=== PATIENT | female | born 1935 | race Caucasian/White ===

== ENCOUNTER 2016-06-09 19:16 | Emergency (ER) | payer OTHER ==
[~2016-06-09] VITALS: Ht 157.5 cm; Wt 62.1 kg
[~2016-06-09 19:16] MED LIST: ADULT LOW DOSE81 MG PO; ALPRAZOLAM 0.0.25 M1 PO; AMBIEN 10 MG TA10 MG PO; AMOXICILLIN875 MG PO; CALCIUM 500 +1 EAC5 PO; CARVEDILOL12.5 MG PO; CENTRUM SILVER1 EAC1 PO; CIPROFLOXACIN500 M3 PO; FLAGYL500 MG PO; FOSAMAX 70 MG T70 M1 PO; K-DUR 20 MEQ T20 MEQ PO; PREVACID 24HR15 MG PO; PREVACID 30MG C30 M1 PO; PREVACID30 M1 PO; SIMVASTATIN80 MG PO; VITAMIN E 400I400 I1 PO
[2016-06-09] MEDS ORDERED: NORCO 5-325 TA1 EACH PO (21:01)
[2016-06-09 21:33] VITALS: BP 197/99
== END 2016-06-09 21:33 | disposition home or self-care (01) ==
LOC: ER 19:16
DX: S42.201A Unspecified fracture of upper end of right humerus, initial encounter for closed fracture (principal); I10 Essential (primary) hypertension; E78.00 Pure hypercholesterolemia, unspecified; K21.9 Gastro-esophageal reflux disease without esophagitis; M81.0 Age-related osteoporosis without current pathological fracture; W01.0XXA Fall on same level from slipping, tripping and stumbling without subsequent striking against object, initial encounter; Y93.89 Activity, other specified; Y92.89 Other specified places as the place of occurrence of the external cause; Y99.9 Unspecified external cause status

== ENCOUNTER → 2016-11-09 | Outpatient (CLI) | payer OTHER ==
[~2016-11-09] MED LIST changes: +NORCO 5-325 TA1 EACH PO
== END ==
LOC: RAD 01:58
DX: Z12.31 Encounter for screening mammogram for malignant neoplasm of breast (principal)

== ENCOUNTER → 2017-07-14 | Outpatient (CLI) | payer OTHER ==
[~2017-07-14] VITALS: Ht 157.5 cm; Wt 58.1 kg
[~2017-07-14] MED LIST changes: +ASPIR 8181 MG PO; +BYSTOLIC 5 MG5 M1 PO; +CENTRUM SILVER1 EAC4 PO; +COZAAR 50 MG TA50 M2 PO; +HYDROCHLOROTH12.5 M1 PO; +PROBIOTIC1 EAC1 PO; +SIMVASTATIN40 MG PO; +VITAMIN D2000 UNIT PO
--- NOTE | ~2017-07-14 | S ---
[facility] [place] [address] SURGICAL PATH RPT PROCEDURE Name: YESSY BURGER Room #: REG [facility].#: [id number] Admission: 07/14/17 Date of : 31 Discharge: Report #: [id number] Path Case #: [id number] PATHOLOGY REPORT COLLECTION DATE: 07/14/2017 RECEIVED DATE: 07/14/2017 SUBMITTING PHYS: Dr. Cristopher Alaniz OTHER PHYS: Dr. Andrew Iqbal SPECIMEN(S) RECEIVED: A.Biopsy of cecal polyp B.Biopsy of polyp at hepatic flexure C.Biopsy of polyp at 50cm x2 * * * * * * * * * * * * FINAL DIAGNOSIS: A. Polyp, cecal polyp, endoscopic biopsy: - Tubular adenoma. - Negative for high-grade dysplasia. B. Polyp, hepatic flexure, endoscopic biopsy: - Tubular adenoma. - Negative for high-grade dysplasia. C. Polyp, at 50 cm, endoscopic biopsy: - Tubular adenoma in one fragment without high-grade dysplasia. - Other fragments showing no diagnostic abnormalities. (IUV:mgr; 07/17/2017) PATHOLOGIST: Ilda Fong M.D. REPORT ELECTRONICALLY SIGNED BY: Ilda Fong M.D. DATE/TIME: 07/17/2017 14:49 * * * * * * * * * * * * GROSS PATHOLOGY: A. Received in formalin labeled "Yessy Burger, BX of cecal polyp" and consists of a 0.3 cm cervantes mucosal biopsy which is entirely submitted A1. B. Received in formalin labeled "Yessy Burger, biopsy of polyp, hepatic flexure" and consists of a 0.3 cm cervantes mucosal biopsy which is entirely submitted as B1. C. Juan A formalin labeled "Yessy Burger, biopsy of polyp at 50 cm" and consists of 2 cervantes mucosal biopsies each averaging 0.3 cm. The specimen is entirely submitted as C1. (RU; 07/14/2017) CLINICAL HISTORY: [address] [address] SURGICAL PATH RPT PROCEDURE Name: YESSY BURGER Room #: REG [facility].#: [id number] Admission: 07/14/17 Date of : 31 Discharge: Report #: [id number] Path Case #: [id number] Colon polyps, diverticulosis. INITIAL CPT CODE(S): A; 62202 B; 26132 C; 52143 Professional services performed by [facility] at [address], [place] [address] Technical services performed by [facility] at [address] [place] [address], [facility] [place] [address] [address]. [facility] [address] [place] [address] PHONE: [phone] DIRECTOR: Tony Mckeon M.D. * * * END OF REPORT * * *
--- NOTE | ~2017-07-14 | P ---
[facility] [place] [address] PROCEDURE REPORT Name: ANDRES SHORE Room #: REG [facility]#: [id number] Admission: 07/14/17 Attend Phys: Cristopher Alaniz MD Discharge: Date of : 33 Report #: [id number] THIS REPORT FOR: //name// CC: Andrew Alaniz BRIEF HISTORY: The patient is an 81-year-old woman with a history of multiple colon polyps for high risk screening colonoscopy. PREOPERATIVE DIAGNOSIS: High risk screening colonoscopy due to multiple colon adenomas. POSTOPERATIVE DIAGNOSES: 1. Multiple colon polyps. 2. Ybdhlojr-cz-kurjpr diverticulosis coli, sigmoid colon. MEDICATIONS: Deep sedation with propofol per anesthesia. SPECIMENS: 1. Cecal polyp. 2. Polyps times 2, hepatic flexure. 3. Polyps times 2 at 50 cm. ESTIMATED BLOOD LOSS: 3 mL. PROCEDURE: Colonoscopy to cecum and terminal ileum with biopsy. FINDINGS: Prior to propofol sedation, the procedure of colonoscopy discussed with the patient as well as potential risks, benefits, and complications. She indicates she understands and desires to proceed. With the patient in left lateral decubitus position, digital examination was completed, which revealed no abnormalities. Subsequently, the [employer] video colonoscope was introduced in the rectum, advanced under direct vision to the cecum. Done with minimal difficulty. The cecum was identified by the ileocecal valve and the appendiceal orifice. I was able to visualize the distal segment of terminal ileum, which was inspected and noted to be unremarkable. At that point, scope was slowly withdrawn and careful circumferential views obtained including retroflexing the scope in the ascending colon. Upon slow withdrawal of the scope, the prep was noted to be good. The mucosa was within normal limits, normal vascular pattern, and normal light reflex. As we withdrew the scope, she was found to have a number of diminutive polyps. There was 1 diminutive polyp in the cecum, removed by biopsy, also another in the hepatic flexure, removed by biopsy and 2 in the descending colon removed by biopsy at 50 cm. All were removed with biopsy forceps. Additional findings included a few scattered diverticula in proximal colon. There was [id number]-sg-[id number] [facility] [address] [place] [address] PROCEDURE REPORT Name: ANDRES SHORE Room #: REG [facility].#: [id number] Admission: 07/14/17 Attend Phys: Cristopher Alaniz MD Discharge: Date of : 31 Report #: [id number] diverticular disease of the sigmoid colon without endoscopic evidence of diverticulitis. Scope was withdrawn in the rectum. Upon retroflexion, no abnormalities were seen. Scope was withdrawn. The patient tolerated the procedure well. CONDITION OF THE PATIENT UPON DISCHARGE: Following procedure, the patient drowsy, arousable, and conversant and will be discharged to home when fully ambulatory. INSTRUCTIONS TO THE PATIENT AND FAMILY AT THE TIME OF DISCHARGE: Four small polyps identified today. We will follow up on path and make further recommendations with the patient. However, at this point in life, there may be minimal benefit from continued routine surveillance or screening colonoscopy. However, if she did develop any problems, colonoscopy could be accomplished at that time. Previous colonoscopy was 3 years ago, withdrawal time from the cecum was 16 minutes and 31 seconds. The patient does report some gas symptoms. She has a history of IBS. She has had more diarrhea in the past and now is having more constipation. She is using Metamucil. Metamucil may be a factor with regards to gas production. One option would be to use MiraLax instead of Metamucil. Also, use of a probiotic may be helpful. If these symptoms persist, she should return to see me in followup in the office. <ELECTRONICALLY SIGNED> By: Cristopher Alaniz MD 07/14/17 1533 1044 1331 Cristopher Alaniz MD /nt
== END | disposition home or self-care (01) ==
LOC: GI 07:56
DX: Z09 Encounter for follow-up examination after completed treatment for conditions other than malignant neoplasm (principal); Z86.010 Personal history of colon polyps; K57.30 Diverticulosis of large intestine without perforation or abscess without bleeding; D12.0 Benign neoplasm of cecum; D12.3 Benign neoplasm of transverse colon; D12.5 Benign neoplasm of sigmoid colon; I10 Essential (primary) hypertension; E78.00 Pure hypercholesterolemia, unspecified; K21.9 Gastro-esophageal reflux disease without esophagitis; M81.0 Age-related osteoporosis without current pathological fracture; F41.8 Other specified anxiety disorders; Z79.82 Long term (current) use of aspirin; Z87.891 Personal history of nicotine dependence; Z79.899 Other long term (current) drug therapy; Z98.890 Other specified postprocedural states
CPT/HCPCS: 62110; 62900

== ENCOUNTER 2017-09-09 11:42 | Inpatient (IN) | payer OTHER ==
[~2017-09-09] VITALS: Ht 157.5 cm; Wt 56.7 kg
--- NOTE | ~2017-09-09 | O ---
[facility] [place] [address] OPERATIVE REPORT Name: ANDRES SHORE Room #: 429-P ADM IN M.R.#: [id number] Admission: 09/09/17 Attend Phys: Esteban Downing MD Discharge: Date of : 31 Report #: [id number] THIS REPORT FOR: //name// CC: Andrew Downing DATE OF SERVICE: 09/10/2017 SERVICE: Orthopedics. FACILITY: [facility]. SURGEON: Billy Al MD PLANT CLERK: None. PREOPERATIVE DIAGNOSIS: Displaced right intertrochanteric hip fracture. POSTOPERATIVE DIAGNOSIS: Displaced right intertrochanteric hip fracture. PROCEDURE: IM nailing, right intertrochanteric hip fracture. COMPLICATIONS: None. DRAINS: None. SPECIMENS: None. ANESTHESIA: General. ESTIMATED BLOOD LOSS: 200 mL. FINDINGS: 1. Comminuted intertrochanteric hip fracture. 2. [employer] InterTan short nail 125 degree with 95 x 90 dual compression screw system and 27.5 mm distal interlocking screw. HISTORY AND INDICATIONS: The patient is an 82-year-old female who fell at home, sustained a right hip fracture. She was brought to the Emergency Room where she was admitted for definitive treatment. The risks, benefits, alternatives and indication for surgery were discussed with her and her son-in-law in detail and she gave full informed consent and wished to proceed. Risks include but not limited to pain, bleeding, infection, injury to nerves or blood vessels, persistent pain despite surgical intervention, malunion, nonunion, need for further surgery including revision as well as complications related to anesthesia such as stroke, heart attack, pulmonary complications, thromboembolic [facility] [address] [place] [address] OPERATIVE REPORT Name: ANDRES SHORE Room #: 429-P [facility] IN M.R.#: [id number] Admission: 09/09/17 Attend Phys: Esteban Downing MD Discharge: Date of : 31 Report #: [id number] disease and . Despite these risks, she wished to proceed. PROCEDURE IN DETAIL: After right leg was correctly identified as the operative extremity, she was taken to the operating room where general anesthesia was induced without complication. She was padded appropriately. Prophylactic antibiotics were administered at appropriate time after she was transferred to the operating table. Time-out procedure was performed. X-ray was brought in to assess the reduction. The reduction maneuver was performed with external rotation, traction and then adduction and internal rotation. This provided a good reduction that was symmetric with the contralateral hip x-ray. Then, the right leg was prepped and draped in standard sterile fashion. Using fluoroscopy to localize the bone, an incision was made proximal to the greater trochanter and dissection was taken down to the trochanter and then a guidepin was placed and advanced across the fracture in standard fashion using multiple planes of x-ray. The anterior reamer was then utilized and then the guidepin was passed across the fracture into the femur. Then, the proximal femur was sequentially reamed to 12.5 mm diameter to allow placement of a 11.5 mm nail and then the outrigger was utilized to place an appropriately positioned proximal interlocking screw in cephalomedullary configuration. The screw length was measured to be 100 mm and so a 95 mm screw was selected to allow for up to 5 mm of compression. This was advanced and then the compression screw was placed and compression completed. The screw was confirmed to be within the bone on both AP and lateral and x-rays were saved. The screw was then locked in position within the nail and then the outrigger was used to place the 27.5 mm distal interlocking screw through the nail. Final x-rays were taken. The outrigger instrumentation was removed from the nail and then the wound was copiously irrigated. The fascial layer was closed with 0 Vicryl. The skin was closed with 2-0 Vicryl followed by skin jose f. Sterile dressing was applied. The patient was awakened from anesthesia and taken to recovery room in stable condition. There were no complications and all counts were recorded as correct. <ELECTRONICALLY SIGNED> By: Billy Al MD 09/10/17 1421 1020 1207 Billy Al MD /nt
--- NOTE | ~2017-09-09 | EKG ---
[place] [address] [facility] [place] [address] ELECTROCARDIOGRAM REPORT Name: ANDRES SHORE Room #: 429-P ADM IN M.R.#: [id number] Admission: 09/09/17 Attend Phys: Esteban Downing MD Discharge: Date of : 31 Report #: [id number] THIS REPORT FOR: //name// [facility] ED Test Date: 2017-09-09 Test Time: 12:59:26 Pat Name: ANDRES SHORE Department: Room: 429 Gender: F Vest Front Presser: ophelia : 1935 Requested By: Jeremie Zepeda Order Number: [id number] MD: Ovidio Leblanc Measurements Intervals Howard Rate: 62 P: -4 NV: 202 QRS: -18 QRSD: 80 T: 20 QT: 428 QTc: 435 Interpretive Statements Sinus rhythm Atrial premature complexes Inferior infarct, old Poor R wave progression Compared to ECG 05/31/2011 22:29:03 Atrial premature complex(es) now present Electronically Signed On 09-10-2017 12:06:38 CDT by Ovidio Leblanc [email or web address] <ELECTRONICALLY SIGNED> By: Ovidio Leblanc MD, [facility] 09/10/17 1206 1259 1259 Ovidio Leblanc MD, [facility] /EPI
[2017-09-09 11:43] VITALS: BP 145/74
[2017-09-09 12:47] LABS: HEMOGLOBIN 14.6 gm/dL (12.0-15.0); MCH 31.9 pg (26.0-34.0); MCHC 33.9 g/dL (28.0-37.0); MCV 94.1 fL (80.0-100.0); RBC 4.57 mil/uL (4.20-5.00); RDW 13.5 % (10.5-14.5); WBC 7.8 thou/uL (4.0-11.0)
[2017-09-09 12:55] LABS: CALCIUM 9.5 mg/dL (8.5-10.1); CREATININE 0.9 mg/dL (0.6-1.0); POTASSIUM 3.9 mmol/L (3.5-5.1)
[2017-09-09 13:08] LABS: APTT 23.1 Seconds (24.5-32.8); PROTIME 10.3 Seconds (9.3-11.4)
[2017-09-09 13:39] VITALS: BP 173/78
[2017-09-09 13:55] VITALS: BP 172/69
[2017-09-09 19:25] VITALS: BP 111/56
[2017-09-10] VITALS (7 sets, daily range): BP systolic 94–136; BP diastolic 45–82
[2017-09-10 05:28] LABS: HEMATOCRIT 28.6 % (37.0-47.0); MCH 32.6 pg (26.0-34.0); MCV 93.2 fL (80.0-100.0); RBC 3.07 mil/uL (4.20-5.00); RDW 13.6 % (10.5-14.5); WBC 10.9 thou/uL (4.0-11.0)
[2017-09-10 05:38] LABS: CALCIUM 8.1 mg/dL (8.5-10.1); CREATININE 0.8 mg/dL (0.6-1.0); POTASSIUM 3.8 mmol/L (3.5-5.1)
[2017-09-11] VITALS: BP 102/54
[2017-09-11 04:00] VITALS: BP 111/55
[2017-09-11 06:11] LABS: POTASSIUM 3.9 mmol/L (3.5-5.1)
[2017-09-11 06:12] LABS: HEMATOCRIT 20.1 % (37.0-47.0); HEMOGLOBIN 6.9 gm/dL (12.0-15.0)
[2017-09-11 07:25] VITALS: BP 114/54
[2017-09-11 14:22] VITALS: BP 126/42; BP 95/49
[2017-09-11 19:57] VITALS: BP 104/51
[2017-09-12 07:05] VITALS: BP 109/53
[2017-09-12 07:48] LABS: HEMATOCRIT 20.7 % (37.0-47.0); HEMOGLOBIN 7.2 gm/dL (12.0-15.0); MCH 31.6 pg (26.0-34.0); MCHC 34.7 g/dL (28.0-37.0); MCV 90.9 fL (80.0-100.0); RBC 2.28 mil/uL (4.20-5.00); RDW 15.4 % (10.5-14.5); WBC 10.3 thou/uL (4.0-11.0)
[2017-09-12 08:01] LABS: % SATURATION 9 % (20-39); ALBUMIN 1.9 g/dL (3.4-5.0); CALCIUM 7.8 mg/dL (8.5-10.1); CREATININE 0.7 mg/dL (0.6-1.0); IRON 14 ug/dL (50-170); MAGNESIUM 1.6 mg/dL (1.8-2.4); POTASSIUM 3.5 mmol/L (3.5-5.1); TIBC 153 ug/dL (250-450); TOTAL PROTEIN 4.5 g/dL (6.4-8.2)
[2017-09-12 08:28] LABS: FERRITIN 103 ng/mL (8-252)
[2017-09-12 19:24] VITALS: BP 110/64
[2017-09-13 07:28] LABS: CALCIUM 7.6 mg/dL (8.5-10.1); CREATININE 0.7 mg/dL (0.6-1.0); MAGNESIUM 1.9 mg/dL (1.8-2.4); POTASSIUM 3.2 mmol/L (3.5-5.1)
[2017-09-13 08:00] VITALS: BP 118/60
[2017-09-13 09:55] LABS: HEMATOCRIT 20.9 % (37.0-47.0); HEMOGLOBIN 7.2 gm/dL (12.0-15.0); MCH 31.9 pg (26.0-34.0); MCHC 34.5 g/dL (28.0-37.0); MCV 92.3 fL (80.0-100.0); RBC 2.26 mil/uL (4.20-5.00); RDW 15.6 % (10.5-14.5); WBC 9.6 thou/uL (4.0-11.0)
[2017-09-13 20:38] VITALS: BP 99/58
[2017-09-14 07:00] VITALS: BP 129/52
== END 2017-09-14 14:30 | DRG 480 ==
LOC: ER 11:42 → 4E 13:04 → EROBS 13:04 → 4E 14:02 → SICU 09-11 16:52
PROVIDERS: Emergency Medicine; Hospitalist; Orthopaedic Surgery Sports Medicine; Registered Nurse
PROC: 0QS606Z Reposition Right Upper Femur with Intramedullary Internal Fixation Device, Open Approach (ICD-10-PCS; 2017-09-10)
PROC: 30233N1 Transfusion of Nonautologous Red Blood Cells into Peripheral Vein, Percutaneous Approach (ICD-10-PCS; principal; 2017-09-11)
DX: S72.141A Displaced intertrochanteric fracture of right femur, initial encounter for closed fracture (principal); E43 Unspecified severe protein-calorie malnutrition; D62 Acute posthemorrhagic anemia; I10 Essential (primary) hypertension; E78.00 Pure hypercholesterolemia, unspecified; E78.5 Hyperlipidemia, unspecified; K21.9 Gastro-esophageal reflux disease without esophagitis; K59.00 Constipation, unspecified; F41.9 Anxiety disorder, unspecified; Z79.82 Long term (current) use of aspirin; Z79.899 Other long term (current) drug therapy; Z87.891 Personal history of nicotine dependence; Z90.49 Acquired absence of other specified parts of digestive tract; Z68.22 Body mass index [BMI] 22.0-22.9, adult; W18.39XA Other fall on same level, initial encounter; Y93.89 Activity, other specified; Y92.094 Garage of other non-institutional residence as the place of occurrence of the external cause; Y99.8 Other external cause status; Z87.81 Personal history of (healed) traumatic fracture
CPT/HCPCS: 10084; 15002; 50101; 50386; 50417; 51412; 51538; 55445; 56524; 56526; 57090; 62110; 62900; 70005

== ENCOUNTER → 2018-01-03 | Outpatient (CLI) | payer OTHER | LOC: RAD 14:15 | DX: Z12.31 Encounter for screening mammogram for malignant neoplasm of breast (principal); I10 Essential (primary) hypertension; E78.00 Pure hypercholesterolemia, unspecified; M81.0 Age-related osteoporosis without current pathological fracture; K21.9 Gastro-esophageal reflux disease without esophagitis ==

== ENCOUNTER → 2018-01-09 | Outpatient (CLI) | payer OTHER | LOC: RAD 01:12 | DX: N60.01 Solitary cyst of right breast (principal); I10 Essential (primary) hypertension; E78.00 Pure hypercholesterolemia, unspecified; K21.9 Gastro-esophageal reflux disease without esophagitis; M81.0 Age-related osteoporosis without current pathological fracture ==

== ENCOUNTER → 2018-07-20 | Outpatient (CLI) | payer OTHER | LOC: RAD 13:25 | DX: N60.01 Solitary cyst of right breast (principal); M81.0 Age-related osteoporosis without current pathological fracture; F41.1 Generalized anxiety disorder; E55.9 Vitamin D deficiency, unspecified; E78.5 Hyperlipidemia, unspecified; I25.10 Atherosclerotic heart disease of native coronary artery without angina pectoris; K21.9 Gastro-esophageal reflux disease without esophagitis ==

== ENCOUNTER → 2019-02-21 | Outpatient (CLI) | payer OTHER | LOC: BC 01:21 | DX: Z12.31 Encounter for screening mammogram for malignant neoplasm of breast (principal) ==

== ENCOUNTER → 2019-06-28 | Outpatient (CLI) | payer OTHER | LOC: SJCVC 10:46 | DX: I21.29 ST elevation (STEMI) myocardial infarction involving other sites (principal); R94.31 Abnormal electrocardiogram [ECG] [EKG]; I25.10 Atherosclerotic heart disease of native coronary artery without angina pectoris; E78.00 Pure hypercholesterolemia, unspecified; I10 Essential (primary) hypertension; I65.23 Occlusion and stenosis of bilateral carotid arteries; Z90.49 Acquired absence of other specified parts of digestive tract; Z79.899 Other long term (current) drug therapy; Z87.891 Personal history of nicotine dependence ==

== ENCOUNTER → 2020-02-24 | Outpatient (CLI) | payer OTHER | LOC: SJCVCIMAG 07:32 | PROVIDERS: ATTEND Internal Medicine Cardiovascular Disease | DX: I08.8 Other rheumatic multiple valve diseases (principal); I25.10 Atherosclerotic heart disease of native coronary artery without angina pectoris; I11.9 Hypertensive heart disease without heart failure; E78.00 Pure hypercholesterolemia, unspecified; I65.23 Occlusion and stenosis of bilateral carotid arteries; Z79.899 Other long term (current) drug therapy; Z87.891 Personal history of nicotine dependence ==

== ENCOUNTER → 2020-05-12 | Outpatient (CLI) | payer OTHER | LOC: BC 10:18 | PROVIDERS: ATTEND Internal Medicine | DX: Z12.31 Encounter for screening mammogram for malignant neoplasm of breast (principal) ==

== ENCOUNTER → 2020-05-21 | Outpatient (CLI) | payer OTHER | LOC: ULTRA 10:36 | PROVIDERS: ATTEND Internal Medicine | DX: N60.01 Solitary cyst of right breast (principal); N63.12 Unspecified lump in the right breast, upper inner quadrant ==

== ENCOUNTER → 2020-06-02 | Outpatient (CLI) | payer OTHER ==
--- NOTE | 2020-06-04 12:07 | PATH ---
[facility] [address] [place] [address] PATHOLOGY RPT PROCEDURE Name: YESSY BURGER Room #: REG CL M.R.#: [id number] Admission: 06/02/20 Date of : 31 Discharge: Report #: [id number] Path Case #: [id number] [facility] Accession Number: [id number] . 01 Material submitted: . breast - RIGHT BREAST MASS. Modifiers: right . 01 Clinical history: . RIGHT BREAST MASS RAD/US/MAMMOTOME BREAST BIOPSY RIGHT BREAST . 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 (IUV:sheet manager; 06/04/2020) MBR 06/04/2020 1043 Local . 02 Comment: Examination shows a central sclerotic focus with scattered rare cells lining the sclerosed foci. The surrounding ductal epithelium around the sclerotic focus is highly atypical with columnar cell change showing moderate to severe atypia or invasive carcinoma. The scattered foci measure 1 mm each. Overall, the entire lesion measures 4 mm. Properly controlled immunohistochemical stains are performed on block A1. P63 and SMMHC show no myoepithelial staining within the focus including the epithelial cells in the central foci as well as the atypical ductal epithelium in the periphery. ER shows strong 3+ reactivity within the atypical ductal epithelium, as well as shows moderate 2+ reactivity within the central sclerotic foci. CK5/6 shows a complete loss of mosaic pattern within the focus. The atypical foci measure 1 mm or less than 1 mm, therefore, the scant nature precludes a definitive interpretation for this lesion. The differential diagnosis includes an encapsulated papillary carcinoma, or invasive papillary carcinoma. Recommend complete excision of this lesion. . Dr. Martha Owen has seen videotape sales representative H and E slides of this case and concurs with my diagnosis. . (IUV:sheet manager; 06/04/2020) . 02 Electronically signed: . Ilda Fong MD, Pathologist NPI- [id number] . 01 Gross description: . The specimen is received in formalin, labeled "Yessy Burger, [place] [address] PATHOLOGY RPT PROCEDURE Name: YESYS BURGER Room #: REG CLI M.R.#: [id number] Admission: 06/02/20 Date of : 31 Discharge: Report #: [id number] Path Case #: [id number] 12:00 2 cm". Received are multiple needle cores of fibrofatty tissue measuring 2.3 x 1.4 x 0.5 cm in aggregate dimensions. The specimen is submitted entirely in cassettes A1 through A3. The cold ischemic time is less than 1 minute. The total formalin fixation time is 9 hours and 5 minutes (CAA; 06/02/2020) QAC/QAC 06/02/2020 1333 Local . 02 Pathologist provided ICD-10: N64.89 . 02 CPT . 360341, S49239, J60276 Specimen Comment: A courtesy copy of this report has been sent to [phone] Specimen Comment: Report sent to Performed at: [address], [place] [id number] MD Brady Carrero MD Phone: [phone] Performed at: [address] [id number] MD Ilda Fong MD Phone: [phone]
== END ==
LOC: RAD 07:07 → ULTRA 08:07 → RAD 08:07
PROVIDERS: ATTEND Internal Medicine
DX: N64.89 Other specified disorders of breast (principal); I10 Essential (primary) hypertension; E78.00 Pure hypercholesterolemia, unspecified; Z87.891 Personal history of nicotine dependence; Z98.890 Other specified postprocedural states; M81.0 Age-related osteoporosis without current pathological fracture

== ENCOUNTER → 2020-11-30 | Outpatient (CLI) | payer OTHER | LOC: SJCVC 11:05 | PROVIDERS: ATTEND Internal Medicine Cardiovascular Disease | DX: I49.1 Atrial premature depolarization (principal); I25.10 Atherosclerotic heart disease of native coronary artery without angina pectoris; I10 Essential (primary) hypertension; E78.00 Pure hypercholesterolemia, unspecified; I65.23 Occlusion and stenosis of bilateral carotid arteries; E78.5 Hyperlipidemia, unspecified; Z87.891 Personal history of nicotine dependence; Z72.89 Other problems related to lifestyle; Z79.82 Long term (current) use of aspirin; Z79.899 Other long term (current) drug therapy; Z88.6 Allergy status to analgesic agent ==